=== PATIENT | female | born 1990 | race Caucasian/White ===

== ENCOUNTER 2024-03-08 11:03 | Day surgery (SDC) | payer BC, SELFPAY ==
[2024-03-08] VITALS (17 sets, daily range): BP systolic 104–156; BP diastolic 64–96; BMI 38.4
[2024-03-08 01:59] LABS: % Basophils 0.2 % (0-2); % Immature Granulocytes 0.4 % (0-0.5); % Monocytes 8.5 % (1.7-9.3); % Neutrophils 68.9 % (42.2-75.2); Absolute Eosinophils 0.1 10^3/uL (0-0.7); Absolute Lymphocytes 1.7 10^3/uL (1.2-3.4); Absolute Monocytes 0.7 10^3/uL (0.1-0.6); Absolute Neutrophils 5.6 10^3/uL (1.4-6.5); Hematocrit 38.2 % (37.0-47.0); Mean Corpuscular Hgb 28.1 pg (27.0-31.0); Mean Corpuscular Volume 82.5 fL (81.0-99.0); Mean Platelet Volume 11.2 fL (7.4-10.4); Nucleated Red Blood Cells % 0 %; Platelet Count 204 10^3/uL (130-400); Red Blood Cell Count 4.63 10^6/uL (4.20-5.40); Red Cell Dist. Width 14.6 % (11.5-14.5); White Blood Cell Count 8.1 10^3/uL (4.8-10.8)
[2024-03-08 02:09] LABS: Urine Albumin Negative (Neg - Trace); Urine Bilirubin Negative (Negative); Urine Character Slightly Cloudy (Clear); Urine Color Yellow; Urine Glucose Negative (Negative); Urine Ketone 3+ (Negative); Urine Leukocyte 1+ (Negative); Urine Nitrite Negative (Negative); Urine Occult Blood Negative (Negative); Urine Specific Gravity 1.025 (<1.030); Urine Urobilinogen Negative (Neg - 1+)
[2024-03-08 02:14] LABS: ALT (SGPT) 29 U/L (0-35); AST (SGOT) 28 U/L (14-36); Albumin 4.5 g/dl (3.5-5.0); Alkaline Phosphatase 63 U/L (38-126); Blood Urea Nitrogen 16 mg/dl (7-17); Calcium 9.9 mg/dl (8.4-10.2); Carbon Dioxide 20 mmol/L (22-30); Chloride 106 mmol/L (98-107); Glucose 103 mg/dl (70-99); Potassium 4.7 mmol/L (3.5-5.1); Sodium 140 mmol/L (135-145); Total Bilirubin 0.6 mg/dl (0.2-1.3); Total Protein 7.1 g/dl (6.3-8.2); eGFR > 60.00
[2024-03-08 02:19] LABS: Urine Mucus Many; Urine Squamous Cell >30 /LPF (Few)
[2024-03-08 02:20] LABS: Urine Bacteria Many (Negative); Urine Red Blood Cell 0-2 /HPF (0-2); Urine White Cell 16-20 /HPF (0-5)
--- NOTE | 2024-03-08 05:35 | ED.GENMED ---
History of Present Illness
General
Chief Complaint: Abdominal Pain
Source: patient
Exam Limitations: none
Time Seen by Provider: 03/08/24 04:21
Nursing documentation reviewed up to this point in time: agreed with
History of Present Illness
History of Present Illness:
33-year-old female with a past medical history of asthma presents to the emergency room for evaluation of abdominal pain. Patient reports onset of symptoms this evening around 8 or 9 PM�lasted for 3 to 4 hours and now completely resolved. She
reports right upper quadrant abdominal pain that radiated towards the right flank. No clear triggering factors noted�last meal was at roughly 5:30 PM she says she had a ham sandwich. No relieving factors noted�she says resolved with intervention.
She reports associated nausea, no vomiting. Denies any diarrhea or constipation. Denies any vaginal bleeding or discharge. Denies any dysuria, hematuria. Denies any fevers or chills. She denies having had similar symptoms in the past. She
denies prior abdominal surgeries.
Past History
Past History
ED Past Medical History: Other (Lyme Disease)
ED Past Surgical History: None
Social History
Tobacco: Non-smoker
Alcohol: None
Drug: None
Personal: Single
Living: with family
Employment: Employed
Family History
Family History: Negative Early CAD or Sudden
Review of Systems
Review of Systems
All Other Systems: ROS reviewed and negative except as documented in HPI and ROS
Constitutional: Denies fever or chills
Respiratory: Denies trouble breathing
Cardiac: Denies chest pain
ABD/GI: Reports abdominal pain and nausea; Denies vomiting or diarrhea
: Denies dysuria, frequency, flank pain or bleeding
Musculoskeletal: Denies neck pain or back pain
Neurological: Denies dizzy or headache
Phy Exam
Physical Exam
Physical Exam:
General: Awake, alert, oriented x3; no acute distress
Head: Normocephalic, atraumatic
Eyes: Conjunctiva normal
Throat: Airway intact, handling secretions
Neck: Trachea midline, supple without meningismus
Lungs: Clear to auscultation bilaterally, no wheezing, rales, rhonchi
Heart: Regular rate
Abd: Soft, non distended, tender to palpation right upper quadrant
Back: No CVA tenderness
Neuro: No gross deficits
Extremities: Warm and well-perfused
Scores
Heart Failure Risk
Heart Failure Risk Score: Not Applicable
Heart Score for Chest Pain Patients
STEMI patient?: Not applicable
Withdrawal Assessment of Alcohol
Withdrawal Assessment Completed?: Not applicable
Course
Orders/Labs/Results
Orders:
Orders
03/08/24 01:49
Complete Blood Count/With Diff Urgent
Comprehensive Metabolic Panel Urgent
HCG, Serum Qualitative Screen Urgent
Comment: ADD ON
Lipase Urgent
Comment: ADD ON
Urinalysis Urgent
Date Specimen was Collected: 03/08/24
Time Specimen was Collected: 01:41
Urine Microscopic Urgent
Date Specimen was Collected: 03/08/24
Time Specimen was Collected: 01:41
03/08/24 04:25
US Abdomen Complete/Upper Urgent
Comment:
Reason For Exam: RUQ abd pain
03/08/24 05:37
Add On- LAB Urgent
Tests Added?: HCG qual
03/08/24 05:39
Add On- LAB Urgent
Tests Added?: lipase
03/08/24 06:39
SURGICAL CONSULT Urgent
Consulting Provider: Elvin Whitlock
Was physician already notified: Yes
Piperacillin/Tazo 3.375 Gram [Zosyn] 3.375 gram in 50 ml IV NOW
Abnormal Lab Results
03/08/24
01:49
RDW 14.6 H %
(11.5-14.5)
MPV 11.2 H fL
(7.4-10.4)
Absolute Monos (auto) 0.7 H 10^3/uL
(0.1-0.6)
Carbon Dioxide 20 L mmol/L
(22-30)
Glucose 103 H mg/dl
(70-99)
Urine Ketones 3+ A
(Negative)
Ur Leukocyte Esterase 1+ A
(Negative)
Urine WBC 16-20 A /HPF
(0-5)
Urine Bacteria Many A
(Negative)
03/08/24 01:49
03/08/24 01:49
Vital Signs
Initial and Last Documented VS:
Initial Vital Signs
Temp Pulse Resp BP Pulse Ox
37.3 C 94 22 156/96 98
03/08/24 00:06 03/08/24 00:06 03/08/24 00:06 03/08/24 00:06 03/08/24 00:06
Last Documented Vital Signs
Temp Pulse Resp BP Pulse Ox
37.3 C 99 16 131/83 96
03/08/24 00:06 03/08/24 03:02 03/08/24 03:02 03/08/24 03:02 03/08/24 03:02
MDM/Problems Addressed
Differential Diagnosis Includes:
Nephrolithiasis, cholelithiasis, cholecystitis
MDM/Problems Addressed:
33-year-old female presents for evaluation after prolonged episode of right upper quadrant abdominal pain that radiated towards the right flank. Symptoms have completely resolved she is now asymptomatic. Denies similar symptoms in the past.
Hypertensive in triage normalized by my assessment�rest of vitals normal. Physical exam as above. Plan to place an IV check labs including a CBC and a CMP, lipase, hCG. Check urinalysis. Check upper abdominal ultrasound. Reassess after the
above.
Labs reviewed: CBC and CMP unremarkable. Urinalysis appears contaminated with many squamous cells but does have bacteria and pyuria�plan to cover with antibiotics. Ultrasound pending.
Ultrasound shows cholelithiasis and signs concerning for acute cholecystitis. Patient still says that she has minimal pain although says that she was quite tender when they were doing the ultrasound. Vital signs have been stable here. Will treat
with Zosyn. Case discussed with surgery for admission.
*Radiology
Radiology exam reviewed: radiology read reviewed
*Pulse Oximetry
Patient hypoxic: no
*Critical Care Note
Total Time (30-74mins, 75-104mins- exclusive of procedures): Not Applicable
Data Reviewed
Source: patient
Patient Management
Discussion with other providers: Calculus Tutor (Discussed with general surgery)
Escalation/DeEscalation of care consider admission/obs:
Admission indicated
ED Attending Note
-
Portions of this chart may have been created with voice recognition software.� Occasional wrong word or��sound alike� substitutions may have occurred due to the inherent limitations of voice recognition software.
Discharge Plan
Departure
Patient Disposition: Admit
Date of Disposition: 03/08/24
Time of Disposition: 06:40
Admit to doctor: Kamlesh
Presentation/result/management discussed w/ accepting MD/DO: General Surgery
Discharge Problem:
Acute cholecystitis
Prescriptions:
No Action
Rx 1 Tablet
1 tab PO DAILY
acetaminophen 325 MG tablet
650 mg PO Q4HPRN PRN (Reason: mild pain) 0RF
Referrals:
UNKNOWN - PT DOES,NOT KNOW [Family Provider] -
Interventions
Interventions:
*Risk Screen - Suicide Last Done: 03/08/24 00:06
*General Assessment Last Done: 03/08/24 03:02
*Neglect/Abuse Screening Last Done: 03/08/24 00:06
ED- Fall Risk Assessment Last Done: 03/08/24 03:02
HB-Yeycdr-Tzkpczjuie Assessment Last Done: 03/08/24 03:02
Discharge Date and Time
Print Language: ARMENIAN
[2024-03-08 05:57] LABS: HCG, Serum Qualitative Screen Negative
[2024-03-08 06:02] LABS: Lipase 126 U/L (23-300)
[2024-03-08] MEDS: ZOSYN 50 IV ×2 (07:11→11:52)
--- NOTE | 2024-03-08 07:25 | HPS.HSE ---
Family Physician
-
Family Physician: NOT KNOW UNKNOWN - PT DOES
Chief Complaint
-
RUQ abdominal pain
History of Present Illness
Patient is a 33 yo F with a PMH notable for morbid obesity who presents with less than 24 hours of RUQ abdominal pain. Ms. Hurd states that her pain began acutely yesterday evening at around 8 or 9 PM. She reports several hours of severe
intense RUQ abdominal pain up underneath her rib cage. Mild radiation to her flank. Mild associated nausea, but no vomiting. No fevers or chills. She has been attempting to lose weight with diet and exercise. Meal prior to onset of symptoms
included a ham sandwich without any mayonnaise or significant fatty food. She denies any jaundice, pale stools, or tea colored urine. Currently she states that her pain is improved, but not completely resolved. She denies any prior attacks of
similar symptoms.
Medical History
Past Medical History
Past Medical History: Reports Asthma and Other (Morbid obesity)
Past Surgical History: Reports None
Social History
Tobacco: Non-smoker
Alcohol: Occasional
Drug: None
Family History
Family History: Not pertinent
Allergies / Home Medications
Allergies reflects when Allergies were last updated in [facility].
Home Medications with original date entered in [facility]
Allergy/Medication List:
NSAIDs, sensitivity
Bees, swelling
Review of Systems
-
A 12 point ROS was completed and negative except as noted: Yes
Physical Exam
Vital Signs
Vital Signs
Temp Pulse Resp BP Pulse Ox
96.9 F L 84 16 132/78 96
03/08/24 07:14 03/08/24 07:14 03/08/24 07:14 03/08/24 07:14 03/08/24 07:14
Physical Exam
General: Well Developed, Well Nourished and No Apparent Distress
HEENT: NormoCephalic and Anicteric
Respiratory: Non Labored Respirations
Cardiac: Regular Rhythm
GI: Soft, Non Distended, Tender (RUQ, positive Salazar sign) and Other (Nonperitoneal)
Skin: Warm and Dry
Neuro: Nonfocal/grossly intact
Laboratory Results
-
03/08/24 01:49
03/08/24 01:49
Laboratory Results
Total Bilirubin 0.6 mg/dl (0.2-1.3) 03/08/24:49
AST 28 U/L (14-36) 03/08/24:49
ALT 29 U/L (0-35) 03/08/24:49
Alkaline Phosphatase 63 U/L (38-126) 03/08/24 01:49
Lipase 126 U/L (23-300) 03/08/24 01:49
Data Reviewed
-
Ultrasound: Image Personally Visualized and interpreted and Report Reviewed by me
Lab Data: Labs Reviewed by me
Impression/Plan
-
IMPRESSION:
Patient is a 33 yo F p/w acute cholecystitis
The natural history and pathophysiology of biliary and stone disease was discussed. Anatomy was briefly reviewed. Workup thus far including labs and imaging were reviewed. Options for management including medical management with antibiotics and a
low-fat diet with outpatient management versus surgical management at this time with cholecystectomy were considered and discussed. Given her persistent level of pain as well as ultrasound findings would recommend cholecystectomy. Patient agrees
and willing to proceed.
Plan for a laparoscopic cholecystectomy with possible cholangiogram. The procedure itself, as well as the risks, benefits, and alternatives was discussed. Specifically, we discussed the risks of bleeding, infection, injury to surrounding
structures (bowel, bile ducts), CBD injury, need for open procedure. Typical postprocedure recovery including pain management, activity restrictions, and a 10 to 20% risk some fluctuation in GI function were discussed. All questions answered.
Consent signed.
PLAN:
-- Laparoscopic cholecystectomy with possible cholangiogram
-- NPO, IVF
-- Antibiotics: Zosyn
-- Pain control: Tylenol and IV Dilaudid PRN
--- NOTE | 2024-03-08 07:31 | W.SUR.PREOP ---
Pre-Operative Surgical Note
-
I have examined this patient prior to the performance of the scheduled procedure.
The patient's condition is unchanged from the time of the current History and
Physical and the patient is able to undergo the scheduled procedure.
--- NOTE | 2024-03-08 11:38 | W.IMMPOSTOP ---
Surgical Immed Post Op Note
-
Primary Surgeon: Kamlesh
Assisting Surgeon: JENI Jones
Pre-op Diagnosis: Acute cholecystitis
Post-op Diagnosis: Acute cholecystitis
Procedure Performed: Laparoscopic cholecystectomy with IOC
Anesthesia Type: General
Specimen / Cultures:
1. Gallbladder
Estimated Blood Loss: 7 cc
Complications: None
Operative Findings:
1. Acutely inflamed GB - dilation, wall thickening and edema
2. Critical view
3. IOC neg
5. Duct take with clips and Endoloop, artery with clips
[2024-03-08] MEDS: ZOFRAN 4 MG IV (12:31)
[2024-03-08] MEDS: DILAUDID 0.25 MG IV (12:33)
[2024-03-08] MEDS: TYLENOL 650 MG PO (16:27)
== END 2024-03-08 16:30 | disposition home or self-care (01) ==
LOC: PACU 11:03
PROVIDERS: ATTENDING PHYSICIAN Surgery; EMERGENCY PHYSICIAN Emergency Medicine
DX: K80.10 Calculus of gallbladder with chronic cholecystitis without obstruction (principal)
CPT/HCPCS: 47563; 88304; 74300; 76000; 76700; 80053; 81003; 81015; 83690; 84703; 85025; 96365; 99285; A4300

== ENCOUNTER 2024-03-09 07:11 | Inpatient (IN) | payer BC, SELFPAY ==
[2024-03-08 20:00] VITALS: BP 150/91
[2024-03-08] MEDS: ZOFRAN 4 MG IV (20:16)
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
[2024-03-08] MEDS: NSS 1000 IV (20:25)
[2024-03-08] MEDS: DILAUDID 1 MG IV (20:25)
[2024-03-08 20:34] LABS: % Basophils 0.2 % (0-2); % Immature Granulocytes 0.3 % (0-0.5); % Lymphocytes 4.8 % (20.5-51.1); % Monocytes 4.3 % (1.7-9.3); % Neutrophils 90.4 % (42.2-75.2); Absolute Lymphocytes 0.6 10^3/uL (1.2-3.4); Absolute Monocytes 0.6 10^3/uL (0.1-0.6); Hematocrit 41.2 % (37.0-47.0); Hemoglobin 13.9 g/dL (12.0-16.0); Mean Corp Hgb Conc. 33.7 g/dL (33.0-37.0); Mean Corpuscular Hgb 27.9 pg (27.0-31.0); Mean Corpuscular Volume 82.7 fL (81.0-99.0); Mean Platelet Volume 11.5 fL (7.4-10.4); Nucleated Red Blood Cells % 0 %; Platelet Count 237 10^3/uL (130-400); Red Blood Cell Count 4.98 10^6/uL (4.20-5.40); Red Cell Dist. Width 14.6 % (11.5-14.5); White Blood Cell Count 13.2 10^3/uL (4.8-10.8)
[2024-03-08 20:37] VITALS: BP 125/74
[2024-03-08 20:45] LABS: HCG, Serum Qualitative Screen Negative
[2024-03-08 20:48] LABS: ALT (SGPT) 47 U/L (0-35); AST (SGOT) 53 U/L (14-36); Albumin 4.9 g/dl (3.5-5.0); Alkaline Phosphatase 82 U/L (38-126); Blood Urea Nitrogen 11 mg/dl (7-17); Carbon Dioxide 19 mmol/L (22-30); Chloride 104 mmol/L (98-107); Glucose 149 mg/dl (70-99); Potassium 4.4 mmol/L (3.5-5.1); Sodium 139 mmol/L (135-145); Total Bilirubin 0.9 mg/dl (0.2-1.3); Total Protein 7.7 g/dl (6.3-8.2); eGFR > 60.00
[2024-03-08 21:00] VITALS: BP 115/76
[2024-03-08 22:01] VITALS: BP 125/85
[2024-03-08] MEDS: ULTRAM 50 MG PO (22:54)
[2024-03-08 23:00] VITALS: BP 127/81
--- NOTE | 2024-03-08 23:37 | HPS.HSE ---
Addendum entered and electronically signed by Elvin Whitlock MD 03/09/24 07:01:
Patient seen and examined.
Patient is a 33 yo F POD#1 s/p laparoscopic cholecystectomy with IOC. Issues with postoperative nausea and vomiting overnight prompting presentation to the ER and readmission. Denies any current nausea or vomiting. Slept well overnight. Pain
well-controlled. Minimal ambulation. Voiding. Afebrile.
Gen: NAD
Abd: soft, minimal tenderness, ND (obese), non-peritoneal, incisions c/d/i - no erythema, ecchymosis or drainage
Labs reviewed and notable for a reactive leukocytosis. Normal kidney function. Normal bilirubin. Mild transaminitis likely related to liver manipulation with underlying fatty liver disease.
Patient is a 33 yo F POD#1 s/p laparoscopic cholecystectomy with IOC
Postoperative nausea and vomiting has improved. Plan to monitor at the morning and normalized. Potential discharge later this afternoon/evening if doing well. If issues with nausea, vomiting, or fevers would keep in the hospital for further
monitoring.
-- LFD
-- IVF
-- Pain control: Tylenol, Toradol, Tramadol
-- DVT: Lovenox
-- DC this afternoon if doing well
Original Note:
Family Physician
-
Family Physician: * NONE
Chief Complaint
-
Abdominal pain, nausea and vomiting
History of Present Illness
a 33 years old year old female present in ER with abdominal pain, nausea and vomiting. Patient had cholecystectomy done today and left the hospital around 4:30- 5Pm, she received Tylenol before leaving the hospital. Start vomiting x2 once she
arrived to home and felt bloated. Tried to eat Pizza bread and taking tramadol but was not able to tolerate and vomited again. Patient has some urinary urgency. No BM during the day and did not pass flatus. Mike fever, chills, chest pain, SOB,
headache, dizziness, or diarrhea.
Medical History
Past Medical History
Past Medical History: Reports Asthma and Other (morbid obesity )
Past Surgical History: Reports Cholecystectomy and Tonsilectomy
Social History
Tobacco: Former Smoker
Alcohol: Occasional
Drug: None
Personal: Single
Living: With Family
Employment: Employed
Family History
Family History: Not pertinent
Allergies / Home Medications
Allergies reflects when Allergies were last updated in [employer].
Home Medications with original date entered in [employer]
Allergy/Medication List:
Patient Allergies
Allergy/AdvReac Type Severity Reaction Status Date / Time
NSAIDS (Non-Steroidal Allergy Unknown SENSITIVITY Verified 03/08/24 20:07
Anti-Inflamma
[NSAIDS (Non-Steroidal
Anti-Inflammatory Drug)]
bees Allergy Swelling Uncoded 03/08/24 20:07
Home Medications Table - record
�Medication �Instructions �Recorded �Confirmed
Rohto 1 drp BOTH EYES Q4HPRN PRN dry 03/08/24 03/08/24
eyes/redness
Trace Minerals 1 cap PO DAILYPRN PRN supplement 03/08/24 03/08/24
acetaminophen 325 mg tablet 650 mg (2 x 325 mg) PO Q4HPRN PRN 03/08/24 03/08/24
mild pain #1 tab
cetirizine 10 mg tablet (Zyrtec) 10 mg PO DAILYPRN PRN allergies 03/08/24 03/08/24
ibuprofen 200 mg tablet 400 - 600 mg (2 - 3 x 200 mg) PO 03/08/24 03/08/24
Q6HPRN PRN moderate pain #1 tab
tramadol 50 mg tablet 50 mg PO Q6HPRN PRN severe pain 03/08/24 03/08/24
Review of Systems
-
A 12 point ROS was completed and negative except as noted: Yes
Constitutional: Reports No Symptoms
EENT: Reports No Symptoms
Respiratory: Reports No Symptoms
Cardiac: Reports No Symptoms
Abdomen/GI: Reports Abdominal Pain (surgical sites), Nausea and Vomiting
: Reports No Symptoms
Musculoskeletal: Reports No Symptoms
Skin: Reports No Symptoms
Neurological: Reports No Symptoms
Endocrine: Reports No Symptoms
Physical Exam
Vital Signs
Vital Signs
Temp Pulse Resp BP Pulse Ox
98.1 F 75 19 127/81 98
03/08/24 20:00 03/08/24 23:25 03/08/24 23:25 03/08/24 23:00 03/08/24 23:15
Physical Exam
General: No Apparent Distress
Respiratory: Clear
Cardiac: Regular Rhythm
GI: Soft, Normal Bowel Sounds and Other (surgical site intact, clean, and no discharge)
Musculoskeletal: No Edema
Neuro: Awake and AO x 3
Laboratory Results
-
03/08/24 20:28
03/08/24 20:28
Laboratory Results
Total Bilirubin 0.9 mg/dl (0.2-1.3) 03/08/24 20:28
AST 53 U/L (14-36) H 03/08/24 20:28
ALT 47 U/L (0-35) H 03/08/24 20:28
Alkaline Phosphatase 82 U/L (38-126) 03/08/24 20:28
Impression/Plan
-
IMPRESSION:
Abdominal pain, Nausea, vomiting S/P cholecystectomy
PLAN:
Admit/ observation / med-surg (Dr. Perez surgical services).
Will keep the patient NPO and start IVF as she not able to tolerate po intake
Antiemetics as needed
analgesics as needed
Abnormal urinalysis result
Patient has urinary urgency.
WBC 13.2
Will start the patient on Ceftriaxone IV
DVT prophylaxis SCDs
Code status Full code
[2024-03-09] VITALS: BP 120/84
[2024-03-09 00:42] VITALS: BMI 38.0
[2024-03-09] MEDS: NSS 1000 IV ×2 (00:54→14:49)
[2024-03-09] MEDS: DILAUDID 0.5 MG IV (00:57)
[2024-03-09 01:05] VITALS: BP 141/83
[2024-03-09] MEDS: ROCEPHIN 1000 MG IV (02:01)
[2024-03-09] MEDS: MYLICON 80 MG PO (02:01)
[2024-03-09] MEDS: STERILE WATER FOR INJECTION 10 ML IV (02:02)
[2024-03-09 02:05] LABS: % Basophils 0.1 % (0-2); % Eosinophils 0.2 % (0-6); % Immature Granulocytes 0.3 % (0-0.5); % Lymphocytes 9.2 % (20.5-51.1); % Monocytes 9.5 % (1.7-9.3); % Neutrophils 80.7 % (42.2-75.2); Absolute Lymphocytes 1.1 10^3/uL (1.2-3.4); Absolute Monocytes 1.1 10^3/uL (0.1-0.6); Absolute Neutrophils 9.2 10^3/uL (1.4-6.5); Hematocrit 35.8 % (37.0-47.0); Hemoglobin 12.3 g/dL (12.0-16.0); Mean Corp Hgb Conc. 34.4 g/dL (33.0-37.0); Mean Corpuscular Hgb 28.3 pg (27.0-31.0); Mean Corpuscular Volume 82.3 fL (81.0-99.0); Mean Platelet Volume 11.8 fL (7.4-10.4); Nucleated Red Blood Cells % 0 %; Platelet Count 184 10^3/uL (130-400); Red Blood Cell Count 4.35 10^6/uL (4.20-5.40); Red Cell Dist. Width 14.6 % (11.5-14.5); White Blood Cell Count 11.4 10^3/uL (4.8-10.8)
--- NOTE | 2024-03-09 02:12 | PTCARENOTE ---
Received pt from ER,alert oriented ,pt ambulated from stretcher to bed tolerated well.Physical assessment preformed,pt c/o ABD pain,ABD incisions CHRISTOPHE with surgical adhesive well approximated,frequent belching,pt did inform this RN she ate pizza with
her Tramadol this past evening,vomited after that.Pt requesting pain med at this time,Dilaudid 0.5 mg iv given with + relief,IVF NSS initiated at 70 mls hour.VS stable.Sleeping after assessment.
[2024-03-09 02:17] LABS: ALT (SGPT) 59 U/L (0-35); AST (SGOT) 61 U/L (14-36); Albumin 3.8 g/dl (3.5-5.0); Alkaline Phosphatase 70 U/L (38-126); Blood Urea Nitrogen 8 mg/dl (7-17); Calcium 9.1 mg/dl (8.4-10.2); Carbon Dioxide 21 mmol/L (22-30); Chloride 108 mmol/L (98-107); Estimated Creatinine Clearance > 125 ml/min; Glucose 110 mg/dl (70-99); Potassium 4.4 mmol/L (3.5-5.1); Sodium 140 mmol/L (135-145); Total Bilirubin 0.8 mg/dl (0.2-1.3); Total Protein 6.3 g/dl (6.3-8.2); eGFR > 60.00
[2024-03-09 07:50] VITALS: BP 136/78
[2024-03-09] MEDS: TYLENOL 650 MG PO ×4 (08:42→20:59)
[2024-03-09] MEDS: NSS (PRESERVATIVE FREE) 10 ML IV (08:42)
[2024-03-09] MEDS: PROTONIX IV 40 MG IV (08:43)
--- NOTE | 2024-03-09 10:20 | CM ---
Reviewed the chart notes and spoke with the patient at the bedside. The patient resides with her son in a one story home with three steps to enter. The patient reports no DME/VN/SNF in the past. The patient confirmed her pharmacy of choice is the
[facility]. CM continues to be available to patient/family and is monitoring medical plan for needs at discharge.
Plan: Discharge to home when medically stable. No needs anticipated.
[2024-03-09] MEDS: ULTRAM 50 MG PO (15:11)
[2024-03-09 15:25] VITALS: BP 137/91
[2024-03-09] MEDS: LOVENOX 40 MG SC (17:21)
[2024-03-09] MEDS: DILAUDID 0.25 MG IV (21:04)
[2024-03-09 23:08] VITALS: BP 131/76
[2024-03-10] MEDS: TYLENOL PO (01:04)
[2024-03-10] MEDS: NSS 1000 IV (04:43)
[2024-03-10] MEDS: TYLENOL 650 MG PO ×2 (04:43→09:24)
[2024-03-10] MEDS: ULTRAM 50 MG PO (04:46)
[2024-03-10 05:47] LABS: Hematocrit 35.8 % (37.0-47.0); Hemoglobin 11.7 g/dL (12.0-16.0); Mean Corp Hgb Conc. 32.7 g/dL (33.0-37.0); Mean Corpuscular Hgb 27.9 pg (27.0-31.0); Mean Corpuscular Volume 85.4 fL (81.0-99.0); Mean Platelet Volume 12.3 fL (7.4-10.4); Platelet Count 155 10^3/uL (130-400); Red Blood Cell Count 4.19 10^6/uL (4.20-5.40); Red Cell Dist. Width 14.9 % (11.5-14.5)
[2024-03-10 06:18] LABS: ALT (SGPT) 156 U/L (0-35); AST (SGOT) 135 U/L (14-36); Albumin 3.6 g/dl (3.5-5.0); Alkaline Phosphatase 77 U/L (38-126); Blood Urea Nitrogen 10 mg/dl (7-17); Carbon Dioxide 24 mmol/L (22-30); Chloride 107 mmol/L (98-107); Estimated Creatinine Clearance > 125 ml/min; Glucose 80 mg/dl (70-99); Potassium 4.1 mmol/L (3.5-5.1); Sodium 140 mmol/L (135-145); Total Bilirubin 0.6 mg/dl (0.2-1.3); eGFR > 60.00
[2024-03-10 07:45] VITALS: BP 112/68
--- NOTE | 2024-03-10 08:51 | W.PN.GS2 ---
Today's Communication / Plan
-
-- Stable for DC from surgical perspective
Assessment / Plan
-
Patient is a 33 yo F POD#2 s/p laparoscopic cholecystectomy with IOC
AVSS
WBC has normalized, normal bilirubin, mild LFT elevation most likely related to fatty liver disease combined with operative liver manipulation, less likely infectious or retained stone given improved symptoms, normalization of WBC, and normal
bilirubin.
Postoperative issues with nausea and vomiting. Symptoms have resolved.
Abdominal soreness incisional and associated with positions.
-- LFD
-- Pain control: Tylenol, Toradol, Tramdol
-- HLIV
-- DVT: Lovenox
-- GI: Protonix
-- Stable for DC from surgical perspective
Subjective Data
-
Date of Service: March 10, 2024
Reports abdominal soreness primarily at epigastric incision, positional. Preoperative symptoms have resolved. Denies any constant RUQ abdominal discomfort. No nausea or vomiting. Bloating has subsided. Passing flatus. No fevers. Ambulating.
Voiding
Objective Data
-
Intake and Output
03/09/24 03/10/24 03/11/24
06:59 06:59 06:59
Intake Total 570 / 570 1879
Balance 570 / 570 1879
Intake:
Oral fluids 1040 / 1040
IV fluids (Total) 560 / 560 840 / 840
IV piggybacks
Other:
Number of approximated MODERATE 1 1
amounts of urine
Number of approximated LARGE 2
amounts of urine
Vital Signs
Temp Pulse Resp BP Pulse Ox
98.3 F 72 16 112/68 97
03/10/24 07:45 03/10/24 07:45 03/10/24 07:45 03/10/24 07:45 03/10/24 07:45
Lab Results
03/10/24 04:38
03/10/24 04:38
Calcium 9.0 mg/dl (8.4-10.2) 03/10/24 04:38
Total Bilirubin 0.6 mg/dl (0.2-1.3) 03/10/24 04:38
AST 135 U/L (14-36) H 03/10/24 04:38
ALT 156 U/L (0-35) H 03/10/24 04:38
Alkaline Phosphatase 77 U/L (38-126) 03/10/24 04:38
Total Protein 6.0 g/dl (6.3-8.2) L 03/10/24 04:38
Albumin 3.6 g/dl (3.5-5.0) 03/10/24 04:38
Physical Exam
-
Gen: NAD
Abd: soft, mild tenderness at epigastric incision, ND (obese), non-peritoneal, incisions c/d/i - no edema, ecchymosis, or drainage
[2024-03-10] MEDS: NSS (PRESERVATIVE FREE) 10 ML IV (09:25)
[2024-03-10] MEDS: PROTONIX IV 40 MG IV (09:25)
== END 2024-03-10 10:59 | disposition home or self-care (01) | DRG 357 ==
LOC: 2 SOUTH 07:11
PROVIDERS: Clinical Nurse Specialist Family Health; Nurse Practitioner Family; Surgery; ADMITTING PHYSICIAN Surgery; EMERGENCY PHYSICIAN Emergency Medicine
PROC: 0FT44ZZ Resection of Gallbladder, Percutaneous Endoscopic Approach (ICD-10-PCS; 2024-03-08)
PROC: BF101ZZ Fluoroscopy of Bile Ducts using Low Osmolar Contrast (ICD-10-PCS; 2024-03-08)
DX: K91.0 Vomiting following gastrointestinal surgery (principal); K80.00 Calculus of gallbladder with acute cholecystitis without obstruction; G89.18 Other acute postprocedural pain; R10.9 Unspecified abdominal pain; K76.0 Fatty (change of) liver, not elsewhere classified; J45.909 Unspecified asthma, uncomplicated; F07.81 Postconcussional syndrome; E66.01 Morbid (severe) obesity due to excess calories; Z68.37 Body mass index [BMI] 37.0-37.9, adult; Z87.891 Personal history of nicotine dependence; Z86.19 Personal history of other infectious and parasitic diseases
CPT/HCPCS: 80053; 84703; 85025; 85027; 96361; 96374; 96375; 99285